=== PATIENT | female | born 1955 | race Caucasian/White ===

== ENCOUNTER → 2024-01-13 07:43 | Outpatient (REF) | payer MEDICARE, OTHER, SELFPAY | LOC: WDC 07:43 | PROVIDERS: ATTENDING PHYSICIAN Family Medicine | DX: Z12.31 Encounter for screening mammogram for malignant neoplasm of breast (principal) | CPT/HCPCS: 77063; 77067 ==

== ENCOUNTER → 2025-01-18 13:54 | Outpatient (REF) | payer MEDICARE, OTHER, SELFPAY | LOC: WDC 13:54 | PROVIDERS: ATTENDING PHYSICIAN Obstetrics & Gynecology Gynecology; FAMILY PHYSICIAN Physician Assistant | DX: M85.89 Other specified disorders of bone density and structure, multiple sites (principal); Z12.31 Encounter for screening mammogram for malignant neoplasm of breast | CPT/HCPCS: 77063; 77067; 77080 ==

== ENCOUNTER 2025-04-12 06:21 | Day surgery (SDC) | payer MEDICARE, OTHER, SELFPAY | END 2025-04-12 12:37 | disposition home or self-care (01) | LOC: GI 06:21 | PROVIDERS: ATTENDING PHYSICIAN Internal Medicine Gastroenterology | DX: Z12.11 Encounter for screening for malignant neoplasm of colon (principal); K64.9 Unspecified hemorrhoids; D12.4 Benign neoplasm of descending colon; Z86.0100 Personal history of colon polyps, unspecified | CPT/HCPCS: 45385; 88305 ==